=== PATIENT | female | born 1965 | race Caucasian/White ===

== ENCOUNTER 2023-03-21 00:14 | Emergency (ER) | payer BC ==
[~2023-03-21] VITALS: Ht 170.2 cm; Wt 85.3 kg
[2023-03-21 00:35] VITALS: BP 124/62; TEMP 98.2; O2SAT 98
== END 2023-03-21 00:37 | disposition home or self-care (01) ==
LOC: ER 00:17
DX: H61.23 Impacted cerumen, bilateral (principal)